=== PATIENT | female | born 1990 | race Caucasian/White ===

== ENCOUNTER 2020-11-11 19:45 | Emergency (ER) | payer OTHER, MEDICAID, SELFPAY ==
[2020-11-11 19:57] VITALS: BP 118/57; PULSE 73; RESP 18; TEMP 37.1; O2SAT 98; BMI 18.0
[2020-11-11 20:17] LABS: Add Manual Diff / Slide Review NO; Basophils Absolute Auto 100 /uL (0-100); Basophils Percent Auto 0.8 % (0-2); Eosinophils Absolute Auto 500 /uL (0-450); Eosinophils Percent Auto 4.5 % (2-4); Hematocrit 41.9 % (36-46); Lymphocytes Absolute Auto 2200 /uL (1100-4500); Lymphocytes Percent Auto 21.7 % (25-40); Mean Corpuscular HGB Conc 33.5 % (30-36); Mean Corpuscular Hemoglobin 28.7 PG (26-34); Mean Corpuscular Volume 85.8 fL (80-100); Monocytes Absolute Auto 1100 /uL (0-900); Monocytes Percent Auto 10.5 % (3-14); Neutrophils Absolute Auto 6300 /uL (1500-7000); Neutrophils Percent Auto 62.5 % (50-75); Platelet Count 227 X10^3/uL (150-400); Red Blood Cell Count 4.89 X10^6/uL (4.0-5.2); Red Cell Distribution Width 13.9 % (11.6-14.8); White Blood Cell Count 10.1 X10^3/uL (4.5-11.0)
[2020-11-11 20:25] LABS: Alanine Aminotransferase 21 IU/L (<35); Albumin 4.2 g/dL (3.5-5.0); Albumin Globulin Ratio 1.4 (1.0-2.8); Alkaline Phosphatase 64 U/L (38-126); Aspartate Aminotransferase 24 IU/L (14-36); BUN Creatinine Ratio 11.8 (6-22); Bilirubin Total 0.4 mg/dL (0.2-1.3); Blood Urea Nitrogen 9 mg/dL (7-17); Calcium 9.2 mg/dL (8.4-10.2); Carbon Dioxide 26 mmol/L (22-32); Chloride 107 mmol/L (98-107); Creatine Kinase 38 U/L (30-135); Estimated Glomerular Filt Rate > 60.0 mL/min (>60); Globulin 2.9 g/dL (1.7-4.1); Glucose 89 mg/dL (70-100); HEMOLYSIS < 15 (0-50); Lipase 103 U/L (23-300); Sodium 140 mmol/L (137-145); Total Protein 7.1 g/dL (6.3-8.2)
[2020-11-11 20:37] LABS: Troponin I < 0.012 ng/mL (0.01-0.034)
[2020-11-11 20:38] LABS: COVID19 -Nasal RAPID Negative (Negative)
== END 2020-11-11 22:49 | disposition left against medical advice (07) ==
PROVIDERS: Emergency Provider Emergency Medicine
DX: R05 Cough (principal); R07.9 Chest pain, unspecified; Z20.822 Contact with and (suspected) exposure to COVID-19
CPT/HCPCS: 36415; 80053; 82550; 83690; 84484; 85025; 87635; 99281; C9803

== ENCOUNTER → 2021-08-18 08:39 | Outpatient (CLI) | payer OTHER, MEDICAID, SELFPAY ==
--- NOTE | 2021-08-18 08:40 | DI.MG.S_ITS ---
BILATERAL DIGITAL DIAGNOSTIC MAMMOGRAM 3D/2D: 08/18/2021 CLINICAL: Diffuse left breast pain. Baseline. No prior exams were available for comparison. The tissue of both breasts is extremely dense, which lowers the sensitivity of mammography. No significant masses, calcifications, or other findings are seen in either breast. IMPRESSION: INCOMPLETE: NEEDS ADDITIONAL IMAGING EVALUATION There is no abnormality seen in the left breast to correspond with the area of clinical concern and pain in the lateral aspect, however, an ultrasound is recommended for further evaluation and is scheduled to immediately follow this examination. This exam was interpreted at Station ID: [id number]. NOTE: For mammograms, a report in lay terms will be sent to the patient. Approximately 15% of breast malignancies will not be visualized mammographically. In the management of a palpable breast mass, a negative mammogram must not discourage biopsy of a clinically suspicious lesion. Electronically Signed By: Agustin Harry M.D. aty/:08/18/2021 09:23:44 ACR BI-RADS Category 0: Incomplete [id number]
--- NOTE | 2021-08-18 08:40 | DI.US.S_ITS ---
ULTRASOUND OF LEFT BREAST AND AXILLA: 08/18/2021 CLINICAL: Focal left breast pain. Comparison is made to exam dated: 08/18/2021 mammogram - [facility]. Color flow and real-time ultrasound of the left breast axilla were performed. Cohn scale images of the real-time examination were reviewed. There is a 0.6 cm x 0.4 cm x 0.5 cm oval mass with a circumscribed margin in the left breast at 4 o'clock middle depth 2 cm from the nipple. This oval mass is hypoechoic. This was not seen on the prior mammogram. Color flow imaging demonstrates that there is no vascularity present. There also is a 0.5 cm x 0.3 cm x 0.5 cm normal lymph node in the left breast at 3 o'clock middle depth 3 cm from the nipple. This normal lymph node is hypoechoic. This correlates as an incidental finding. No significant abnormalities were seen sonographically in the left axilla. IMPRESSION: PROBABLY BENIGN The 0.6 cm x 0.4 cm x 0.5 cm oval mass in the left breast at 4 o'clock middle depth most likely is a fibroadenoma and is probably benign. The 0.5 cm x 0.3 cm x 0.5 cm normal lymph node in the left breast at 3 o'clock middle depth is benign. A follow-up left ultrasound in 6 months is recommended to demonstrate stability. Recommend clinical follow up for persistent or worsening symptoms, or development of any clinically suspicious findings. Findings and recommendations were conveyed to the patient during today's evaluation. This exam was interpreted at Station ID: [id number]. Electronically Signed By: Agustin silveira/:08/18/2021 11:16:32 letter sent: Clinical Evaluation Ultrasound BI-RADS: 3 Probably benign
== END ==
PROVIDERS: Referring Provider Obstetrics & Gynecology; Visit Provider Obstetrics & Gynecology
DX: R92.2 Inconclusive mammogram (principal); N63.23 Unspecified lump in the left breast, lower outer quadrant; N64.4 Mastodynia
CPT/HCPCS: 76642; 77066; G0279

== ENCOUNTER → 2022-02-03 09:46 | Outpatient (CLI) | payer OTHER, MEDICAID, SELFPAY ==
--- NOTE | 2022-02-03 09:47 | DI.US.S_ITS ---
PROCEDURE: US PELVIC COMPLETE INDICATIONS: RIGHT ovary pain TECHNIQUE: Real-time scanning was performed of the pelvic organs, with image documentation. Additional endovaginal scanning was necessary due to incomplete visualization of the adnexal and endometrial structures by transabdominal scanning. COMPARISON: None. FINDINGS: Uterus: Removed. Ovaries: The right ovary measures 3.9 x 2.1 x 2.0 cm, with a calculated ovarian volume of 8.3 cc. The left ovary is absent. There is a 1.1 cm follicle within the right ovary. Other: No pathologic free abdominal or pelvic fluid. IMPRESSION: Absence of uterus and left ovary. 1.1 cm right ovarian follicle. We strive to produce accurate, complete, and clear reports of imaging services. To assist us in improving patient care, this report was composed using standard report templates and voice recognition software. Therefore, it may contain abnormal punctuation, insertions and/or omissions. Occasional wrong-word or sound-alike substitutions may occur. Though we review the report and make efforts to correct it, we do recommend that the report be read carefully in proper context to recognize any text inaccuracies. Dictated by: Sue Nuñez M.D. on 02/03/2022 at 12:06 Approved by: Sue Nuñez M.D. on 02/03/2022 at 12:09
--- NOTE | 2022-02-03 09:47 | DI.US.S_ITS ---
LIMITED ULTRASOUND OF LEFT BREAST: 02/03/2022 CLINICAL: 6 month follow-up of cysts. Comparison is made to exams dated: 08/18/2021 ultrasound and 08/18/2021 mammogram - [facility]. Color flow and real-time ultrasound of the left breast 3-4 o'clock region were performed. Cohn scale images of the real-time examination were reviewed. There is a stable 0.5 cm x 0.4 cm x 0.3 cm oval mass with a circumscribed margin in the left breast at 4 o'clock middle depth 2 cm from the nipple. This oval mass is hypoechoic. This was not seen on the prior mammogram. Color flow imaging demonstrates that there is no vascularity present. There also is a stable benign 0.5 cm x 0.4 cm x 0.3 cm normal lymph node in the left breast at 3 o'clock middle depth 3 cm from the nipple. This normal lymph node is hypoechoic. This correlates as an incidental finding. IMPRESSION: PROBABLY BENIGN Stable 0.5 cm mass in the left breast at 4 o'clock middle depth most likely is a lymph node or a fibroadenoma and is probably benign. Stable 0.5 cm normal lymph node in the left breast at 3 o'clock middle depth is consistent with a lymph node and is benign. A follow-up ultrasound in 6 months is recommended to demonstrate continued stability. Exam findings were conveyed to the patient. This exam was interpreted at Station ID: [id number]. Electronically Signed By: Morteza Alfaro M.D. slc/:02/03/2022 10:56:28 letter sent: Followup Recommended Ultrasound BI-RADS: 3 Probably benign
== END ==
PROVIDERS: Referring Provider Specialist; Visit Provider Specialist
DX: N63.23 Unspecified lump in the left breast, lower outer quadrant (principal); N64.4 Mastodynia; N94.89 Other specified conditions associated with female genital organs and menstrual cycle; Z90.710 Acquired absence of both cervix and uterus; Z90.721 Acquired absence of ovaries, unilateral
CPT/HCPCS: 76642; 76830; 76856; 93976

== ENCOUNTER → 2022-05-08 10:12 | Outpatient (CLI) | payer OTHER, MEDICAID, SELFPAY ==
--- NOTE | 2022-05-08 10:12 | DI.US.S_ITS ---
PROCEDURE: US PELVIC COMPLETE INDICATIONS: HISTORY OF OVARIAN CYST TECHNIQUE: Real-time scanning was performed of the pelvic organs, with image documentation. Additional endovaginal scanning was necessary due to incomplete visualization of the adnexal and endometrial structures by transabdominal scanning. COMPARISON: [facility], , US PELVIC COMPLETE, 02/03/2022, 9:54. FINDINGS: Uterus: Status post hysterectomy. Ovaries: Status post left oophorectomy. The right ovary measures 3.7 x 1.9 x 1.7 cm, with a calculated ovarian volume of 6.3 cc. The right ovary has a normal sonographic appearance without a visualized cyst. No adnexal masses are seen. Other: No pathologic free abdominal or pelvic fluid. IMPRESSION: 1. Status post hysterectomy and left oophorectomy. 2. No right ovarian cyst. We strive to produce accurate, complete, and clear reports of imaging services. To assist us in improving patient care, this report was composed using standard report templates and voice recognition software. Therefore, it may contain abnormal punctuation, insertions and/or omissions. Occasional wrong-word or sound-alike substitutions may occur. Though we review the report and make efforts to correct it, we do recommend that the report be read carefully in proper context to recognize any text inaccuracies. Approved by: Bry Carreon M.D. on 05/08/2022 at 14:58
== END ==
PROVIDERS: Referring Provider Obstetrics & Gynecology; Visit Provider Obstetrics & Gynecology
DX: N83.00 Follicular cyst of ovary, unspecified side (principal); Z90.721 Acquired absence of ovaries, unilateral; Z90.710 Acquired absence of both cervix and uterus
CPT/HCPCS: 76830; 76856

== ENCOUNTER → 2022-11-30 09:50 | Outpatient (CLI) | payer OTHER, MEDICAID, SELFPAY ==
[2022-11-30 10:30] LABS: Add Manual Diff / Slide Review NO; Basophils Absolute Auto 0 /uL (0-100); Basophils Percent Auto 0.6 % (0-2); Eosinophils Absolute Auto 100 /uL (0-450); Eosinophils Percent Auto 1.5 % (2-4); Hematocrit 39.8 % (36-46); Hemoglobin 13.6 g/dL (12.0-16.0); Lymphocytes Absolute Auto 1500 /uL (1100-4500); Lymphocytes Percent Auto 24.2 % (25-40); Mean Corpuscular HGB Conc 34.3 % (30-36); Mean Corpuscular Hemoglobin 28.7 PG (26-34); Mean Corpuscular Volume 83.7 fL (80-100); Monocytes Absolute Auto 600 /uL (0-900); Monocytes Percent Auto 9.1 % (3-14); Neutrophils Absolute Auto 4100 /uL (1500-7000); Neutrophils Percent Auto 64.6 % (50-75); Platelet Count 217 X10^3/uL (150-400); Red Blood Cell Count 4.75 X10^6/uL (4.0-5.2); Red Cell Distribution Width 13.3 % (11.6-14.8); White Blood Cell Count 6.3 X10^3/uL (4.5-11.0)
[2022-11-30 10:36] LABS: Hemoglobin A1C% w Est Avg Glu 5.1 % (4.0-6.0)
[2022-11-30 10:51] LABS: Alanine Aminotransferase 18 IU/L (<35); Albumin 4.1 g/dL (3.5-5.0); Albumin Globulin Ratio 1.6 (1.0-2.8); Alkaline Phosphatase 66 U/L (38-126); Aspartate Aminotransferase 23 IU/L (14-36); BUN Creatinine Ratio 17.3 (6-22); Bilirubin Total 0.4 mg/dL (0.2-1.3); Blood Urea Nitrogen 14 mg/dL (7-17); Calcium 9.1 mg/dL (8.4-10.2); Carbon Dioxide 29 mmol/L (22-32); Chloride 103 mmol/L (98-107); Cholesterol 132 mg/dL (140-199); Estimated Glomerular Filt Rate > 60 mL/min (>60); Globulin 2.6 g/dL (1.7-4.1); Glucose 96 mg/dL (70-100); HDL Cholesterol 55 mg/dL (40-60); HEMOLYSIS < 15 (0-50); LDL Cholesterol Calculated 69 mg/dL (<100); Potassium 3.8 mmol/L (3.4-5.1); Sodium 138 mmol/L (137-145); Total Protein 6.7 g/dL (6.3-8.2); Triglycerides 39 mg/dL (35-150)
[2022-11-30 11:10] LABS: TSH w/ Reflex to FT4 0.79 uIU/mL (0.47-4.68)
== END ==
PROVIDERS: PCP Family Medicine; Referring Provider Family Medicine; Visit Provider Family Medicine
DX: D64.9 Anemia, unspecified (principal); I95.9 Hypotension, unspecified; R53.83 Other fatigue
CPT/HCPCS: 36415; 80053; 80061; 83036; 84443; 85025

== ENCOUNTER → 2022-12-11 12:49 | Outpatient (CLI) | payer OTHER, MEDICAID, SELFPAY ==
--- NOTE | 2022-12-11 12:51 | DI.US.S_ITS ---
LIMITED ULTRASOUND OF LEFT BREAST: 12/11/2022 CLINICAL: Patient returns today to evaluate two focal asymmetries in the left breast. Comparison is made to exams dated: 02/03/2022 ultrasound, 08/18/2021 ultrasound, and 08/18/2021 mammogram - [facility]. Color flow and real-time ultrasound of the left breast 3-4 o'clock region were performed. Cohn scale images of the real-time examination were reviewed. There is a stable benign 0.5 cm x 0.4 cm x 0.3 cm normal lymph node in the left breast at 3 o'clock middle depth 3 cm from the nipple. This normal lymph node is hypoechoic. This correlates as an incidental finding. The mass in the left breast at 4 o'clock middle depth is no longer seen. This was not seen on the prior mammogram. IMPRESSION: BENIGN There is no sonographic evidence of malignancy. Mass at the 4:00 position is no longer seen and is benign. Stable 0.5 cm lymph node in the left breast at 3 o'clock middle depth is benign. Exam findings were conveyed to the patient. Patient reports persistent pain in the lateral left breast. Patient is advised to monitor for significant change. Clinical follow-up as needed. A screening mammogram at age 40 is recommended. This exam was interpreted at Station ID: [id number]. Electronically Signed By: Morteza Alfaro M.D. [facility]/:12/11/2022 13:24:49 letter sent: Normal Exam Ultrasound BI-RADS: 2 Benign
== END ==
PROVIDERS: PCP Family Medicine; Referring Provider Family Medicine; Visit Provider Family Medicine
DX: N63.20 Unspecified lump in the left breast, unspecified quadrant (principal)
CPT/HCPCS: 76642

== ENCOUNTER → 2023-02-15 13:39 | Outpatient (CLI) | payer OTHER, MEDICAID, SELFPAY ==
--- NOTE | 2023-02-15 | DI.ECHO.S_ITS ---
[facility]---------+ [facility] +---------+ : : [address] : : : : [id number] : : : : Phone: [phone]+ Echocardiogram Report + + :Name: RADHA SCOTT Study Date: 02/15/2023 Height: 69 in : :[facility] ReadingLocation: Weight: 150 lb : : Gender: Female BSA: 1.8 m2 : :: 1990 Age: 32 yrs BP: 100/73 mmHg: :Reason For Study: DYSPNEA ON EXERTION : :Ordering Physician: QIAN, : :HORACIO Performed By: Yvonne Juarez : :Referring: HORACIO LAUGHLIN : + + Interpretation Summary Normal sinus rhythm. Normal LV size and wall thickness; normal wall motion and LV systolic function. EF is 55-60%. Normal chamber sizes. No significant valvular abnormalities. No prior study available for comparison. Procedure: A two-dimensional transthoracic echocardiogram with color flow and Doppler was performed. The study quality was technically adequate. There is no prior echocardiogram noted for this patient. The patient was in sinus rhythm with heart rates between 58-72 bpm during the exam. Left Ventricle: The left ventricle is normal in size and wall thickness. The ejection fraction is estimated to be 55-60%. Right Ventricle: The right ventricle is normal in size and function. Atria: The left atrial size is normal. Right atrial size is normal. There is no Doppler evidence for an interatrial shunt. Mitral Valve: The mitral valve is normal in structure and function. There is trace mitral regurgitation. Aortic Valve: The aortic valve is trileaflet. The aortic valve opens well. There is no aortic valve stenosis. No aortic regurgitation is present. Tricuspid Valve: The tricuspid valve is normal in structure and function. There is trace tricuspid regurgitation. Pulmonary artery pressures cannot be estimated because of the lack of a measurable TR jet velocity. Pulmonic Valve: The pulmonic valve leaflets are thin and pliable; valve motion is normal. There is no pulmonic valvular regurgitation. Great Vessels: The aortic root is normal size. The dimensions of the ascending aorta are normal. The IVC is of normal diameter and collapses greater than 50% with a sniff. This suggests a low right atrial pressure of 3 mm Hg. Pericardium/ Pleura There is no pericardial effusion. There is no pleural effusion. MMode/2D Measurements & Calculations LVIDd: 4.3 cm LVOT diam: 2.0 cm LVIDs: 2.9 cm Ao root diam: 2.8 cm FS: 32.9 % asc Aorta Diam: 2.6 cm IVSd: 0.50 cm Ao Arch Diam (Prox Trans): 2.7 cm LVPWd: 0.54 cm LV berry. diameter/BSA (cm/m^2): 2.3 LV sys. diameter/BSA (cm/m^2): 1.6 LA A2 area: 11.5 cm2 RA long axis: 3.7 cm LA A4 area: 11.0 cm2 RA area: 11.3 cm2 LA length (vol): 3.9 cm RA vol: 29.8 ml LA vol: 27.8 ml RA : 16.3 ml/m2 LA vol index: 15.2 ml/m2 IVC diam: 1.7 cm RVD1 (basal): 3.1 cm RVD2 (mid): 3.1 cm TAPSE: 1.8 cm Doppler Measurements & Calculations Ao V2 max: 119.7 cm/sec LVOT Max Ravi: 107.5 cm/sec Ao V2 mean: 82.5 cm/sec LV V1 max P.6 mmHg Ao max P.7 mmHg LV V1 VTI: 20.3 cm Ao mean P.0 mmHg BASSAM(I,D): 2.6 cm2 Ao V2 VTI: 23.9 cm BASSAM(V,D): 2.8 cm2 sev ratio: 0.85 BASSAM indexed to BSA (cm^2/m^2): 1.4 MV E max ravi: 83.6 cm/sec PA V2 max: 100.8 cm/sec MV A max ravi: 63.4 cm/sec PA V2 mean: 71.2 cm/sec MV E/A: 1.3 PA mean P.2 mmHg Med Peak E' Ravi: 11.5 cm/sec PA pr(Accel): 17.3 mmHg E/E' med: 7.3 Lat Peak E' Ravi: 12.8 cm/sec E/E' lat: 6.5 E/e' average: 6.9 MV dec time: 0.25 sec SVMATT): 62.6 ml Electronically signed by: Horacio Laughlin M.D. on Reading Physician:02/19/2023 04:06 AM
--- NOTE | 2023-02-16 03:29 | DI.NM.S_ITS ---
DATE OF SERVICE: 02/15/2023 PROCEDURE: Exercise treadmill stress test without imaging. ORDERING PROVIDER: Diane Vazquez MD INDICATIONS: The patient is a 32-year-old female with intermittent fatigue, dyspnea, bradycardia, and atypical chest discomfort. FINDINGS: 1. The patient was able to exercise for 8 minutes 20 seconds on a standard Chris protocol suggesting mildly impaired exercise capacity with an TO of +12%, achieving 8.3 METs. 2. She had a normal heart rate response to exercise, achieving a maximum heart rate of 165 BPM (89% of her predicted maximum). She had a fairly flat blood pressure response to exercise with a resting blood pressure of 115/75, increasing to 120/76. 3. She reported 1/6 atypical chest discomfort at 3 minutes of exercise but no further details were provided. 4. Her resting ECG shows sinus rhythm with an incomplete RBBB but normal ST segments. There are no significant ST-segment shifts with exercise and only occasional, isolated PVCs at peak exercise but otherwise no arrhythmias. IMPRESSION: 1. Normal exercise treadmill stress test for ischemia. 2. Mildly impaired exercise capacity with mild, atypical chest discomfort and a fairly flat blood pressure response to exercise. She had rare isolated PVCs at peak exercise but no other arrhythmias. Susie Rabago - ROCHELLE/ruth ann/bret doc#: [id number]/job#: [id number] dd: 02/15/2023 16:49:00 dt: 02/16/2023 03:17:00 DICTATING /COPIES TO: Wes Cabrera MD; Diane Vazquez MD COPIES MNE: SANTOS;
== END ==
PROVIDERS: PCP Family Medicine; Referring Provider Internal Medicine; Visit Provider Internal Medicine
DX: R06.09 Other forms of dyspnea (principal); R07.89 Other chest pain; R53.83 Other fatigue; R00.1 Bradycardia, unspecified
CPT/HCPCS: 93017; 93306

== ENCOUNTER → 2023-06-11 16:33 | Outpatient (CLI) | payer OTHER, MEDICAID, SELFPAY ==
--- NOTE | 2023-06-11 16:34 | DI.RAD.S_ITS ---
PROCEDURE: XR THORACIC SPINE 2V INDICATIONS: t spine pain, scoliosis TECHNIQUE: 3 views of the thoracic spine were acquired. COMPARISON: None. FINDINGS: Bones: No fractures or dislocations. No suspicious bony lesions. 12 pairs of ribs are noted, and appear intact where visualized. Soft tissues: No paravertebral stripe thickening. IMPRESSION: No acute bony abnormality. Dictated by: Agustin Harry M.D. on 06/12/2023 at 9:53 Approved by: Agustin Harry M.D. on 06/12/2023 at 9:53
== END ==
PROVIDERS: PCP Family Medicine; Referring Provider Family Medicine; Visit Provider Family Medicine
DX: M54.6 Pain in thoracic spine (principal); J34.89 Other specified disorders of nose and nasal sinuses
CPT/HCPCS: 72070

== ENCOUNTER → 2023-12-07 12:16 | Outpatient (CLI) | payer OTHER, MEDICAID, SELFPAY ==
[2023-12-07 13:12] LABS: Alanine Aminotransferase 15 IU/L (<35); Albumin 4.6 g/dL (3.5-5.0); Albumin Globulin Ratio 1.6 (1.0-2.8); Alkaline Phosphatase 50 U/L (38-126); Aspartate Aminotransferase 23 IU/L (14-36); Bilirubin Total 0.6 mg/dL (0.2-1.3); Blood Urea Nitrogen 16 mg/dL (7-17); Calcium 9.3 mg/dL (8.4-10.2); Carbon Dioxide 27 mmol/L (22-32); Chloride 103 mmol/L (98-107); Cholesterol 145 mg/dL (140-199); Estimated Glomerular Filt Rate > 60 mL/min (>60); Globulin 2.8 g/dL (1.7-4.1); Glucose 84 mg/dL (70-100); HDL Cholesterol 54 mg/dL (40-60); HEMOLYSIS < 15 (0-50); LDL Cholesterol Calculated 76 mg/dL (<100); Potassium 4.6 mmol/L (3.4-5.1); Sodium 139 mmol/L (137-145); Total Protein 7.4 g/dL (6.3-8.2); Triglycerides 75 mg/dL (35-150)
[2023-12-08 20:04] LABS: HIV 1 & 2 Ab/Ag 4th Gen Combo NEGATIVE (NEGATIVE); Hep C Virus Ab w/Reflex Quant NEGATIVE s/c (NEGATIVE)
== END ==
PROVIDERS: PCP Family Medicine; Referring Provider Family Medicine; Visit Provider Family Medicine
DX: E78.5 Hyperlipidemia, unspecified (principal); G56.00 Carpal tunnel syndrome, unspecified upper limb
CPT/HCPCS: 36415; 80053; 80061; 86803; 87389

== ENCOUNTER 2024-03-20 13:00 | Outpatient (RCR) | payer OTHER, MEDICAID, SELFPAY ==
--- NOTE | 2024-02-07 15:52 | OT.OP.EVAL ---
Visit Care Team Role Provider Type Zach Corona DO Family Provider Physician Primary Care Provider Specialty: Family Practice Address: [address] [place] [address], [address], [place], [address] Email: [email or web address] Chris Baca DO Attending Provider Non-Staff Referring Provider Specialty: Orthopedic Surgery Address: [facility], [place], [address] Email: Occupational Therapy Initial Evaluation OT Outpatient Adult Evaluation Start: 02/07/24 13:30 Freq: Status: Active Protocol: Document 02/07/24 13:30 AMS (Rec: 02/07/24 13:46 AMS [id number]) General Information - Adult Visit Number EVAL CHARGE ONLY; 0/8 (8 visits @ 3 units per visit) Plan of Care Dates 02/07/24 - 03/20/24 Insurance Information [employer]; Zach Corona MD and Chris Baca MD Visit Start Time 11:30 Visit Stop Time 12:05 Treatment Setting Outpatient Care Note Type Initial Evaluation Identification Confirmed Yes Identification Confirmed By Self OT Pain Assessment When Pain Assessed Pre-eval Pain Present Pain Reported Right Finger Scale Used 2nd dorsal digit; distal MP/ prox PIP; 4/10 Numeric Pain Scale Right Wrist Scale Used Volar/dorsal surfaces of wrist 7/10 Numeric Pain Scale Right Arm Scale Used R forearm; 7-8/10 Numeric Pain Scale Right Elbow Scale Used 7-8/10 Numeric Pain Scale Goals Field Instructor Goals 1. Susie will be modified independent with execution of home exercise program referencing visual/written instructions if needed. 2. Susie will verbalize understanding of joint protection principles; she will deny any questions re: basic joint protection principles. 3. Susie will present with improved ability to participate in meaningful activities; this will be evidenced by the followina. Susie will obtain a QuickDASH UE Outcome Measure Score of < 40.00. 3b. Susie will obtain a QuickDASH UE Work Module Score of < 50.00. 4. Susie will present w/ improved R UE strength which will support active incorporation of the R UE in daily life: 4a. 5/5 R wrist flex. 4b. 5/5 R wrist ext. 4c. 5/[address] 4d. 5/5 R wrist UD. 4e. 5/5 R elbow extension. Assessment/Plan Treatment Assessment Susie is 33 y.o.; she is R hand dominant; she was referred to OT secondary to R hand pain, R elbow pain, R hand paresthesia, R elbow medial epicondylitis. Medical history is significant for depression, hysterectomy, appendectomy, gall bladder removal, and tubal ligation. She is a mother of 4 children; her 8 y.o. still needs hands- on caregiving. 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 Susie reported that symptoms presented approx 1 year ago. Most discomfort of the medial R elbow; pain shoots distally down forearm into the wrist and thumb and 2nd digit of the R hand. She denied having a nerve conduction study; she reported trying a compression glove, compression sleeve, and a counterforce brace w/ reported no relief of symptoms . QuickDASH UE Outcome Measure Score = 59.09; QuickDASH Work Module Score (mobile home lot utility worker) = 62.50. Hobbies include painting, writing, crotcheting , and drawing, as well as reading. She has been limited in her ability to engage in these activities d/t pain/ discomfort. Active range of motion goniometer measurements : 0-62 R wrist flex vs 0-60 L wrist flex. 0-80 R wrist ext vs 0-90 L wrist ext. 0-30 R wrist UD vs 0-30 L wrist UD. 0 -[address] vs 0-[address] Full active bilateral elbow flex and ext; full active bilateral forearm pronation and supination. Pain /discomfort of medial R elbow w/ R forearm supination. (-) intrinsic tightness noted bilaterally. Dynamometer II Strength Testing Results with elbow in 90 degrees Flexion = R sports broadcaster 43 .0# of force (compared to 35- 39 y.o. same-aged peers 74.1 + /- 10.8# of force) versus L sports broadcaster 70.0# of force (compared to 35-39 y.o. same-aged peers 66.3 +/- 11.7# of force). Dynamometer II Strength Testing Results with Elbow Extended = R sports broadcaster 28.0# of force versus L sports broadcaster 75.0# of force. Lateral Salomon Pinch = R lateral pinch 9.5# of force ( compared to 35-39 y.o. same- aged peers 16.6 +/- 2.0# of force) versus L lateral pinch 15.0# of force (compared to 35 -39 y.o. same-aged peers 16.0 +/- 2.7# of force). Tip Pinch = R tip pinch 7.0# of force ( compared to 35-39 y.o. same- aged peers 11.6 +/- 2.5# of force) versus L tip pinch 11.0 # of force (compared to 35-39 y.o. same-aged peers 11.9 +/- 2.4# of force). 3-Jaw Pinch = R 3-jaw pinch 8.0# of force ( compared to 35-39 y.o. same- aged peers 17.5 +/- 4.2# of force) versus L 3-jaw pinch 11 .5# of force (compared to 35- 39 y.o. same-aged peers 17.1 + /- 3.4# of force). Right wrist soreness post- sports broadcaster/finger pinch strength testing. (-) change in sensation w/ elbow flexion test. Discomfort of medial elbow reported w/ resisted wrist flex and wrist ext. Distal UE Strength Testing Results: 4+/5 R wrist flex vs 5/5 L wrist flex. 4/5 R wrist ext vs 5/5 L wrist ext. 4/[address] vs 5/[address] 4+/5 R wrist UD vs 5 /5 L wrist UD. 5/5 R forearm supination vs 5/5 L forearm supination. 5/5 R forearm pronation vs 5/5 L forearm pronation. 4+/5 R elbow ext vs 5/5 L elbow ext. 5/5 R elbow flex vs 5/5 L elbow flex. Outpatient OT recommended to establish HEP, address stiffness and reduced strength , and provide education re: joint protection/ergonomics. Length of treatment (weeks) 6 Plan of Care Start Date 02/07/24 Plan of Care End Date 03/20/24 Comment 1-2 times per week Therapeutic Contents Active Range of Motion, Adaptive Equipment Education, Functional Activities,Home Exercise Program,Joint Protection,Manual Therapy, Education,Neurodevelopment Treatment,Neuromuscular Re- Education,Self-Care,Stretching /Flexibility Activities, Therapeutic Activities, Therapeutic Exercises, Modalities Modalities As Needed,As Prescribed Additional Types of Modalities Heat/Ice/Contrast Baths/ Paraffin Bath/Ultrasound/ Kinesiotape
--- NOTE | 2024-03-06 15:55 | OT.OP.TRT ---
Visit Care Team Role Provider Type Zach Corona DO Family Provider Physician Primary Care Provider Specialty: Family Practice Address: [address] [place] [address], [address], [place], [address] Email: [email or web address] Chris Baca DO Attending Provider Non-Staff Referring Provider Specialty: Orthopedic Surgery Address: [facility] [place], [address] Email: Occupational Therapy Treatment Note OT Outpatient Treatment Note - Adult Start: 02/07/24 13:30 Freq: Status: Active Protocol: Document 03/06/24 15:42 AMS (Rec: 03/06/24 15:55 AMS [id number]) OT Outpatient Adult Treatment Note Session Time Visit Start Time 13:05 Visit Stop Time 13:45 Visit Information Visit Number 1/ (8 visits @ 3 units per visit) Plan of Care Dates 02/07/24 - 03/20/24 Insurance Information [employer]; Zach Corona MD and Chris Baca MD Setting Treatment Setting Outpatient Care Visit Type Note Type Treatment Note General Information General Information Susie is 33 y.o.; she is R hand dominant; she was referred to OT secondary to R hand pain, R elbow pain, R hand paresthesia, R elbow medial epicondylitis. Medical history is significant for depression, hysterectomy, appendectomy, gall bladder removal, and tubal ligation. She is a mother of 4 children; her 6 y.o. still needs hands- on caregiving. 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 Susie reported that symptoms presented approx 1 year ago. Most discomfort of the medial R elbow; pain shoots distally down forearm into the wrist and thumb and 2nd digit of the R hand. She denied having a nerve conduction study; she reported trying a compression glove, compression sleeve, and a counterforce brace w/ reported no relief of symptoms . - Subjective Identification Type Name Observations Susie denied any change in symptoms. - Objective Objective Measurements Please refer to below for progress towards meeting established OT goals: Route Inspector Goals 1. Susie will be modified independent with execution of home exercise program referencing visual/written instructions if needed. 2. Susie will verbalize understanding of joint protection principles; she will deny any questions re: basic joint protection principles. 3. Susie will present with improved ability to participate in meaningful activities; this will be evidenced by the followina. Susie will obtain a QuickDASH UE Outcome Measure Score of < 40.00. 3b. Susie will obtain a QuickDASH UE Work Module Score of < 50.00. 4. Susie will present w/ improved R UE strength which will support active incorporation of the R UE in daily life: 4a. 5/5 R wrist flex. 4b. 5/5 R wrist ext. 4c. 5/[address] 4d. 5/5 R wrist UD. 4e. 5/5 R elbow extension. - Exercises 3 Descriptor Resistant exercises. Green Flex-bar; level 3. Supination. 3 x 10. Green Flex-bar; level 3. Pronation. 3 x 10. Green Flex-bar; level 3. RD. 3 x 10. Green Flex-bar; level 3. UD. 3 x 10. 2 Descriptor UEB x 15 minutes. Seated. Forwards direction. No rest breaks. Height #4. 1 Descriptor Distal UE ROM. Passive wrist/digit ext w/ elbow ext and forearm supination. Hold for 20 sec. Completed bilaterally. x 1. Passive wrist flex w/ elbow ext and forearm pronation. Hold for 20 sec. Completed bilaterally. x 1. Passive wrist RD/UD w/ slight elbow ext and forearm pronation. Use of TT. Hold for 20 sec. Completed bilaterally . x 1. Tendon glides. x 5 cycles. Hold for 2-3 sec. - Assessment Assessment of Improvement Advanced therapeutic exercises ; advanced HEP. There has been no changes in her pain/ discomfort. She has transitioned from hand sewing to sewing machine use w/ quilting. She has a history of crocheting. She has 2 children on the spectrum; 4 children in total. Did not tolerate tennis elbow flex-bar eccentric exercise; consider providing w/ flex-bar w/ less resistance for this exercise at next treatment session. Home Exercise Program 03/06/24 = Passive wrist/digit ext w/ elbow ext and forearm supination. Hold for 20-30 sec . Complete bilaterally. Execute 1-2 times daily or as needed. Passive wrist flex w/ elbow ext and forearm pronation. Hold for 20-30 sec. Complete bilaterally. Execute 1-2 times daily or as needed. Passive wrist RD/UD w/ slight elbow ext and forearm pronation. Use of TT. Hold for 20-30 sec. Complete bilaterally. Execute 1-2 times daily or as needed. Instructed in alternative wall wrist/digit ext stretch at wall w/ forearm supination vs passive stretch previously listed; instructed to move hands superiorly on wall until stretch is felt. Hold for 20- 30 sec. Complete bilaterally. An alternative to the passive ipsilateral stretch previously instructed in. Tendon glides. x 5 cycles. Hold for 2-3 sec each position. Complete bilaterally. Make sure to return to neutral between glides. - Plan Therapy Recommendations Advance per Rehabilitation Protocol
--- NOTE | 2024-03-20 15:32 | OT.OPPOC ---
Physical, Occupational & Speech Therapy At [facility] Susie Rabago [id number] 1990 Visit Care Team Role Provider Type Zach Corona DO Family Provider Physician Primary Care Provider Address: [address] [place] [address], [facility] [address], [place], [address] Chris Baca DO Attending Provider Non-Staff Referring Provider Address: [address] [place], [address] Occupational Therapy Plan of Care OT Outpatient Adult Evaluation Start: 02/07/24 13:30 Freq: Status: Active Protocol: Document 02/07/24 13:30 AMS (Rec: 02/07/24 13:46 AMS [id number]) General Information - Adult Visit Information Visit Number EVAL CHARGE ONLY; 0/8 (8 visits @ 3 units per visit) Plan of Care Dates 02/07/24 - 03/20/24 Insurance Information [employer]; Zach Corona MD and Chris Baca MD Session Time Visit Start Time 11:30 Visit Stop Time 12:05 Setting Treatment Setting Outpatient Care Visit Type Note Type Initial Evaluation Identification Identification Confirmed Yes Identification Confirmed By Self OT Pain Assessment Pain When Pain Assessed Pre-eval Pain Present Pain Present Pain Reported Location Right Finger Scale Used 2nd dorsal digit; distal MP/ prox PIP; 4/10 Numeric Pain Scale Right Wrist Scale Used Volar/dorsal surfaces of wrist 7/10 Numeric Pain Scale Right Arm Scale Used R forearm; 7-8/10 Numeric Pain Scale Right Elbow Scale Used 7-8/10 Numeric Pain Scale Goals Correction Goals Correction Goals 1. Susie will be modified independent with execution of home exercise program referencing visual/written instructions if needed. 2. Susie will verbalize understanding of joint protection principles; she will deny any questions re: basic joint protection principles. 3. Susie will present with improved ability to participate in meaningful activities; this will be evidenced by the followina. Susie will obtain a QuickDASH UE Outcome Measure Score of < 40.00. 3b. Susie will obtain a QuickDASH UE Work Module Score of < 50.00. 4. Susie will present w/ improved R UE strength which will support active incorporation of the R UE in daily life: 4a. 5/5 R wrist flex. 4b. 5/5 R wrist ext. 4c. 5/[address] 4d. 5/5 R wrist UD. 4e. 5/5 R elbow extension. Assessment/Plan Assessment Treatment Assessment Susie is 33 y.o.; she is R hand dominant; she was referred to OT secondary to R hand pain, R elbow pain, R hand paresthesia, R elbow medial epicondylitis. Medical history is significant for depression, hysterectomy, appendectomy, gall bladder removal, and tubal ligation. She is a mother of 4 children; her 6 y.o. still needs hands- on caregiving. 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 Susie reported that symptoms presented approx 1 year ago. Most discomfort of the medial R elbow; pain shoots distally down forearm into the wrist and thumb and 2nd digit of the R hand. She denied having a nerve conduction study; she reported trying a compression glove, compression sleeve, and a counterforce brace w/ reported no relief of symptoms . QuickDASH UE Outcome Measure Score = 59.09; QuickDASH Work Module Score (home lighting adviser) = 62.50. Hobbies include painting, writing, crotcheting , and drawing, as well as reading. She has been limited in her ability to engage in these activities d/t pain/ discomfort. Active range of motion goniometer measurements : 0-62 R wrist flex vs 0-60 L wrist flex. 0-80 R wrist ext vs 0-90 L wrist ext. 0-30 R wrist UD vs 0-30 L wrist UD. 0 -[address] vs 0-[address] Full active bilateral elbow flex and ext; full active bilateral forearm pronation and supination. Pain /discomfort of medial R elbow w/ R forearm supination. (-) intrinsic tightness noted bilaterally. Dynamometer II Strength Testing Results with elbow in 90 degrees Flexion = R lead burner apprentice 43 .0# of force (compared to 35- 39 y.o. same-aged peers 74.1 + /- 10.8# of force) versus L lead burner apprentice 70.0# of force (compared to 35-39 y.o. same-aged peers 66.3 +/- 11.7# of force). Dynamometer II Strength Testing Results with Elbow Extended = R lead burner apprentice 28.0# of force versus L lead burner apprentice 75.0# of force. Lateral Salomon Pinch = R lateral pinch 9.5# of force ( compared to 35-39 y.o. same- aged peers 16.6 +/- 2.0# of force) versus L lateral pinch 15.0# of force (compared to 35 -39 y.o. same-aged peers 16.0 +/- 2.7# of force). Tip Pinch = R tip pinch 7.0# of force ( compared to 35-39 y.o. same- aged peers 11.6 +/- 2.5# of force) versus L tip pinch 11.0 # of force (compared to 35-39 y.o. same-aged peers 11.9 +/- 2.4# of force). 3-Jaw Pinch = R 3-jaw pinch 8.0# of force ( compared to 35-39 y.o. same- aged peers 17.5 +/- 4.2# of force) versus L 3-jaw pinch 11 .5# of force (compared to 35- 39 y.o. same-aged peers 17.1 + /- 3.4# of force). Right wrist soreness post- lead burner apprentice/finger pinch strength testing. (-) change in sensation w/ elbow flexion test. Discomfort of medial elbow reported w/ resisted wrist flex and wrist ext. Distal UE Strength Testing Results: 4+/5 R wrist flex vs 5/5 L wrist flex. 4/5 R wrist ext vs 5/5 L wrist ext. 4/[address] vs 5/[address] 4+/5 R wrist UD vs 5 /5 L wrist UD. 5/5 R forearm supination vs 5/5 L forearm supination. 5/5 R forearm pronation vs 5/5 L forearm pronation. 4+/5 R elbow ext vs 5/5 L elbow ext. 5/5 R elbow flex vs 5/5 L elbow flex. Outpatient OT recommended to establish HEP, address stiffness and reduced strength , and provide education re: joint protection/ergonomics. Plan Length of treatment (weeks) 6 Plan of Care Start Date 02/07/24 Plan of Care End Date 03/20/24 Comment 1-2 times per week Therapeutic Contents Active Range of Motion, Adaptive Equipment Education, Functional Activities,Home Exercise Program,Joint Protection,Manual Therapy, Education,Neurodevelopment Treatment,Neuromuscular Re- Education,Self-Care,Stretching /Flexibility Activities, Therapeutic Activities, Therapeutic Exercises, Modalities Modalities As Needed,As Prescribed Additional Types of Modalities Heat/Ice/Contrast Baths/ Paraffin Bath/Ultrasound/ Kinesiotape Functional Wrist/Hand Scan Hand Side Sensory Assessment Sensory Profile2 OT Outpatient Treatment Note - Adult Start: 02/07/24 13:30 Freq: Status: Active Protocol: Document 03/20/24 15:18 AMS (Rec: 03/20/24 15:31 AMS [id number]) OT Outpatient Adult Treatment Note Session Time Visit Start Time 13:05 Visit Stop Time 13:45 Visit Information Visit Number 2/ (8 visits @ 3 units per visit) Plan of Care Dates 03/20/24 - 04/17/24 Insurance Information [employer]; Zach Corona MD and Chris Baca MD Setting Treatment Setting Outpatient Care Visit Type Note Type Progress Note General Information General Information Susie is 33 y.o.; she is R hand dominant; she was referred to OT secondary to R hand pain, R elbow pain, R hand paresthesia, R elbow medial epicondylitis. Medical history is significant for depression, hysterectomy, appendectomy, gall bladder removal, and tubal ligation. Report of difficulties w/ sleep/insomnia. She is a mother of 4 children; her 6 y. o. still needs hands-on caregiving. 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 Susie reported that symptoms presented approx 1 year ago. Most discomfort of the medial R elbow; pain shoots distally down forearm into the wrist and thumb and 2nd digit of the R hand. She denied having a nerve conduction study; she reported trying a compression glove, compression sleeve, and a counterforce brace w/ reported no relief of symptoms . Hobbies: She has transitioned from hand sewing to sewing machine use w/ quilting. She has a history of crocheting. - Subjective Identification Type Name Observations Susie reported that she cancelled next week's appointment d/t conflicting appointment in [place]. Susie denied any changes in her R UE symptoms. She has been doing stretches in the morning given that she awakes to stiffness. - Objective Objective Measurements Please refer to below for progress towards meeting established OT goals: Correction Goals 1. Susie will be modified independent with execution of home exercise program referencing visual/written instructions if needed. 2. Susie will verbalize understanding of joint protection principles; she will deny any questions re: basic joint protection principles. 3. Susie will present with improved ability to participate in meaningful activities; this will be evidenced by the followina. Susie will obtain a QuickDASH UE Outcome Measure Score of < 40.00. 3b. Susie will obtain a QuickDASH UE Work Module Score of < 50.00. 4. Susie will present w/ improved R UE strength which will support active incorporation of the R UE in daily life: 4a. 5/5 R wrist flex. 4b. 5/5 R wrist ext. 4c. 5/[address] 4d. 5/5 R wrist UD. 4e. 5/5 R elbow extension. - Exercises 4 Descriptor Wrist strengthening. TB #3. Wrist extension. Elbow 90 degrees flexion. Seated. 2 x 10. TB #3. Wrist flexion. Elbow 90 degrees flexion. Seated. 2 x 10. TB #3. Wrist RD. Elbow approx 100 degrees flexion. Seated. TT. 2 x 10. TB #3. Wrist UD. Elbow approx 100 degrees flexion. Seated. TT. 2 x 10. 3 Descriptor Resistant exercises. Green Flex-bar; level 3. Supination. 2 x 10. Green Flex-bar; level 3. Pronation. 2 x 10. Green Flex-bar; level 3. RD. 2 x 10. Green Flex-bar; level 3. UD. 2 x 10. Green Flex-bar; level 3. Wrist flexion. 2 x 10. Green Flex-bar; level 3. Wrist extension. 2 x 10. 2 Descriptor UEB x 15 minutes. Seated. Forwards direction. No rest breaks. Height #4. 1 Descriptor Distal UE ROM. Passive wrist/digit ext w/ elbow ext and forearm supination. Hold for 20 sec. Completed bilaterally. x 1. Passive wrist flex w/ elbow ext and forearm pronation. Hold for 20 sec. Completed bilaterally. x 1. Passive wrist RD/UD w/ slight elbow ext and forearm pronation. Use of TT. Hold for 20 sec. Completed bilaterally . x 1. Tendon glides. x 5 cycles. Hold for 2-3 sec. - Assessment Assessment of Improvement Advanced therapeutic exercises ; advanced HEP. There have been no changes in her pain/ discomfort since starting outpatient treatment; she reports completing her stretches in the morning d/t waking up w/ stiffness. Demonstrates and verbalizes awareness of need to return to neutral position between tendon glides. She has 2 children on the spectrum; 4 children in total. Home Exercise Program 03/20/24 = Resistive wrist strengthening exercises w/ use of TB#3; provided w/ TB#3 for home use. Instructed in seated resisted wrist ext, wrist flex, and use of TT for wrist RD/UD. Rec 2-3 sets of 10 repetitions (2 sets completed in today's session), 3 x a week, or every other day. Rec rest break approx ~1 min between sets and/or alt exercises (e.g., alt between resisted wrist ext <-> flex or wrist RD <-> UD). 03/06/24 = Passive wrist/digit ext w/ elbow ext and forearm supination. Hold for 20-30 sec . Complete bilaterally. Execute 1-2 times daily or as needed. Passive wrist flex w/ elbow ext and forearm pronation. Hold for 20-30 sec. Complete bilaterally. Execute 1-2 times daily or as needed. Passive wrist RD/UD w/ slight elbow ext and forearm pronation. Use of TT. Hold for 20-30 sec. Complete bilaterally. Execute 1-2 times daily or as needed. Instructed in alternative wall wrist/digit ext stretch at wall w/ forearm supination vs passive stretch previously listed; instructed to move hands superiorly on wall until stretch is felt. Hold for 20- 30 sec. Complete bilaterally. An alternative to the passive ipsilateral stretch previously instructed in. Tendon glides. x 5 cycles. Hold for 2-3 sec each position. Complete bilaterally. Make sure to return to neutral between glides. - Plan Therapy Recommendations Advance per Rehabilitation Protocol Comment 4 weeks Frequency of Treatment Once a Week Therapeutic Contents Active Range of Motion, Adaptive Equipment Education, Functional Activities,Home Exercise Program,Joint Protection,Manual Therapy, Education,Neurodevelopment Treatment,Neuromuscular Re- Education,Self-Care,Stretching /Flexibility Activities, Therapeutic Activities, Therapeutic Exercises Additional Types of Modalities Heat/Ice/Contrast Baths/ Paraffin/Ultrasound Electronically Signed by: Mary Alice Peck OT 03/20/24 1532 If you are in agreement with this Plan of Care, please return a signed and dated copy. I have reviewed this Plan of Care and certify that the skilled therapy services above are required to meet the patient?s needs. Physician Signature Date Printed Name and Credentials Clinical Instructor Signature Printed Name and Credentials
--- NOTE | 2024-04-03 13:22 | OT.OP.TRT ---
Visit Care Team Role Provider Type Zach Corona DO Family Provider Physician Primary Care Provider Specialty: Family Practice Address: [address] [place] [address], [address], [place], [address] Email: [email or web address] Chris Baca DO Attending Provider Non-Staff Referring Provider Specialty: Orthopedic Surgery Address: [address] [facility], [place], [address] Email: Occupational Therapy Treatment Note OT Outpatient Treatment Note - Adult Start: 02/07/24 13:30 Freq: Status: Active Protocol: Document 04/03/24 13:20 AMS (Rec: 04/03/24 13:22 AMS [id number]) OT Outpatient Adult Treatment Note Visit Type Note Type Administrative Note General Information General Information Susie is 33 y.o.; she is R hand dominant; she was referred to OT secondary to R hand pain, R elbow pain, R hand paresthesia, R elbow medial epicondylitis. Medical history is significant for depression, hysterectomy, appendectomy, gall bladder removal, and tubal ligation. Report of difficulties w/ sleep/insomnia. She is a mother of 4 children; her 6 y. o. still needs hands-on caregiving. 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 Susie reported that symptoms presented approx 1 year ago. Most discomfort of the medial R elbow; pain shoots distally down forearm into the wrist and thumb and 2nd digit of the R hand. She denied having a nerve conduction study; she reported trying a compression glove, compression sleeve, and a counterforce brace w/ reported no relief of symptoms . Hobbies: She has transitioned from hand sewing to sewing machine use w/ quilting. She has a history of crocheting. - Subjective Observations Given that Susie did not show for her scheduled 1:00 p. m. appointment, she was messaged via [employer]. She was notified of the time and date of her next scheduled appointment; phone number for the outpatient clinic was also included in the message. Clinician to follow-up as needed. - - - -
--- NOTE | 2024-04-21 10:49 | OT.OP.DC ---
Visit Care Team Role Provider Type Zach Corona DO Family Provider Physician Primary Care Provider Address: [address] [place] [address], [address], [place], [address] Email: [email or web address] Chris Baca DO Attending Provider Non-Staff Referring Provider Address: [facility] [place], [address] Email: OT Outpatient OT Outpatient Adult Evaluation Start: 02/07/24 13:30 Freq: Status: Active Protocol: Document 02/07/24 13:30 AMS (Rec: 02/07/24 13:46 AMS [id number]) General Information - Adult Visit Information Visit Number EVAL CHARGE ONLY; 0/8 (8 visits @ 3 units per visit) Plan of Care Dates 02/07/24 - 03/20/24 Insurance Information [employer]; Zach Corona MD and Chris Baca MD Session Time Visit Start Time 11:30 Visit Stop Time 12:05 Setting Treatment Setting Outpatient Care Visit Type Note Type Initial Evaluation Identification Identification Confirmed Yes Identification Confirmed By Self OT Pain Assessment Pain When Pain Assessed Pre-eval Pain Present Pain Present Pain Reported Location Right Finger Scale Used 2nd dorsal digit; distal MP/ prox PIP; 4/10 Numeric Pain Scale Right Wrist Scale Used Volar/dorsal surfaces of wrist 7/10 Numeric Pain Scale Right Arm Scale Used R forearm; 7-8/10 Numeric Pain Scale Right Elbow Scale Used 7-8/10 Numeric Pain Scale Goals Detention Goals Detention Goals 1. Susie will be modified independent with execution of home exercise program referencing visual/written instructions if needed. 2. Susie will verbalize understanding of joint protection principles; she will deny any questions re: basic joint protection principles. 3. Susie will present with improved ability to participate in meaningful activities; this will be evidenced by the followina. Susie will obtain a QuickDASH UE Outcome Measure Score of < 40.00. 3b. Susie will obtain a QuickDASH UE Work Module Score of < 50.00. 4. Susie will present w/ improved R UE strength which will support active incorporation of the R UE in daily life: 4a. 5/5 R wrist flex. 4b. 5/5 R wrist ext. 4c. 5/[address] 4d. 5/5 R wrist UD. 4e. 5/5 R elbow extension. Assessment/Plan Assessment Treatment Assessment Susie is 33 y.o.; she is R hand dominant; she was referred to OT secondary to R hand pain, R elbow pain, R hand paresthesia, R elbow medial epicondylitis. Medical history is significant for depression, hysterectomy, appendectomy, gall bladder removal, and tubal ligation. She is a mother of 4 children; her 8 y.o. still needs hands- on caregiving. 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 Susie reported that symptoms presented approx 1 year ago. Most discomfort of the medial R elbow; pain shoots distally down forearm into the wrist and thumb and 2nd digit of the R hand. She denied having a nerve conduction study; she reported trying a compression glove, compression sleeve, and a counterforce brace w/ reported no relief of symptoms . QuickDASH UE Outcome Measure Score = 59.09; QuickDASH Work Module Score (home economics teacher) = 62.50. Hobbies include painting, writing, crotcheting , and drawing, as well as reading. She has been limited in her ability to engage in these activities d/t pain/ discomfort. Active range of motion goniometer measurements : 0-62 R wrist flex vs 0-60 L wrist flex. 0-80 R wrist ext vs 0-90 L wrist ext. 0-30 R wrist UD vs 0-30 L wrist UD. 0 -[address] vs 0-[address] Full active bilateral elbow flex and ext; full active bilateral forearm pronation and supination. Pain /discomfort of medial R elbow w/ R forearm supination. (-) intrinsic tightness noted bilaterally. Dynamometer II Strength Testing Results with elbow in 90 degrees Flexion = R steam meter reader 43 .0# of force (compared to 35- 39 y.o. same-aged peers 74.1 + /- 10.8# of force) versus L steam meter reader 70.0# of force (compared to 35-39 y.o. same-aged peers 66.3 +/- 11.7# of force). Dynamometer II Strength Testing Results with Elbow Extended = R steam meter reader 28.0# of force versus L steam meter reader 75.0# of force. Lateral Salomon Pinch = R lateral pinch 9.5# of force ( compared to 35-39 y.o. same- aged peers 16.6 +/- 2.0# of force) versus L lateral pinch 15.0# of force (compared to 35 -39 y.o. same-aged peers 16.0 +/- 2.7# of force). Tip Pinch = R tip pinch 7.0# of force ( compared to 35-39 y.o. same- aged peers 11.6 +/- 2.5# of force) versus L tip pinch 11.0 # of force (compared to 35-39 y.o. same-aged peers 11.9 +/- 2.4# of force). 3-Jaw Pinch = R 3-jaw pinch 8.0# of force ( compared to 35-39 y.o. same- aged peers 17.5 +/- 4.2# of force) versus L 3-jaw pinch 11 .5# of force (compared to 35- 39 y.o. same-aged peers 17.1 + /- 3.4# of force). Right wrist soreness post- steam meter reader/finger pinch strength testing. (-) change in sensation w/ elbow flexion test. Discomfort of medial elbow reported w/ resisted wrist flex and wrist ext. Distal UE Strength Testing Results: 4+/5 R wrist flex vs 5/5 L wrist flex. 4/5 R wrist ext vs 5/5 L wrist ext. 4/[address] vs 5/[address] 4+/5 R wrist UD vs 5 /5 L wrist UD. 5/5 R forearm supination vs 5/5 L forearm supination. 5/5 R forearm pronation vs 5/5 L forearm pronation. 4+/5 R elbow ext vs 5/5 L elbow ext. 5/5 R elbow flex vs 5/5 L elbow flex. Outpatient OT recommended to establish HEP, address stiffness and reduced strength , and provide education re: joint protection/ergonomics. Plan Length of treatment (weeks) 6 Plan of Care Start Date 02/07/24 Plan of Care End Date 03/20/24 Comment 1-2 times per week Therapeutic Contents Active Range of Motion, Adaptive Equipment Education, Functional Activities,Home Exercise Program,Joint Protection,Manual Therapy, Education,Neurodevelopment Treatment,Neuromuscular Re- Education,Self-Care,Stretching /Flexibility Activities, Therapeutic Activities, Therapeutic Exercises, Modalities Modalities As Needed,As Prescribed Additional Types of Modalities Heat/Ice/Contrast Baths/ Paraffin Bath/Ultrasound/ Kinesiotape Functional Wrist/Hand Scan Hand Side Sensory Assessment Sensory Profile2 OT Outpatient Treatment Note - Adult Start: 02/07/24 13:30 Freq: Status: Active Protocol: Document 04/21/24 10:46 AMS (Rec: 04/21/24 10:48 AMS [id number]) OT Outpatient Adult Treatment Note Visit Information Visit Number 05/24 (8 visits @ 3 units per visit) Plan of Care Dates 03/20/24 - 04/17/24 Insurance Information [employer]; Zach Corona MD and Chris Baca MD Setting Treatment Setting Outpatient Care Visit Type Note Type Discharge Summary General Information General Information Susie is 33 y.o.; she is R hand dominant; she was referred to OT secondary to R hand pain, R elbow pain, R hand paresthesia, R elbow medial epicondylitis. Medical history is significant for depression, hysterectomy, appendectomy, gall bladder removal, and tubal ligation. Report of difficulties w/ sleep/insomnia. She is a mother of 4 children; her 6 y. o. still needs hands-on caregiving. 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 Susie reported that symptoms presented approx 1 year ago. Most discomfort of the medial R elbow; pain shoots distally down forearm into the wrist and thumb and 2nd digit of the R hand. She denied having a nerve conduction study; she reported trying a compression glove, compression sleeve, and a counterforce brace w/ reported no relief of symptoms . Hobbies: She has transitioned from hand sewing to sewing machine use w/ quilting. She has a history of crocheting. - Subjective Observations Susie has not been seen in the outpatient setting by OT since 03/20/2024; she has no additional appointments scheduled and her outpatient OT POC on 04/17/2024. Thus, recommend d/c from outpatient OT at this time and therapist to re-evaluate as deemed appropriate with receipt of new referral for OT from PCP. - Objective Objective Measurements Please refer to below for progress towards meeting established OT goals: Boring Machine Operator Double End Goals ALL GOALS D/C 04/21/24 1. Susie will be modified independent with execution of home exercise program referencing visual/written instructions if needed. 2. Susie will verbalize understanding of joint protection principles; she will deny any questions re: basic joint protection principles. 3. Susie will present with improved ability to participate in meaningful activities; this will be evidenced by the followina. Susie will obtain a QuickDASH UE Outcome Measure Score of < 40.00. 3b. Susie will obtain a QuickDASH UE Work Module Score of < 50.00. 4. Susie will present w/ improved R UE strength which will support active incorporation of the R UE in daily life: 4a. 5/5 R wrist flex. 4b. 5/5 R wrist ext. 4c. 5/[address] 4d[address] 5/5 R wrist UD. 4e. 5/5 R elbow extension. - - Assessment Assessment of Improvement Susie has not been seen in the outpatient setting by OT since 03/20/2024; she has no additional appointments scheduled and her outpatient OT POC on 04/17/2024. Thus, recommend d/c from outpatient OT at this time and therapist to re-evaluate as deemed appropriate with receipt of new referral for OT from PCP. - Plan Therapy Recommendations Discharge from Occupational Therapy
== END 2024-04-24 12:21 | disposition home or self-care (01) ==
LOC: OT 13:00
PROVIDERS: Family Provider Family Medicine; PCP Family Medicine; Referring Provider Orthopaedic Surgery; Visit Provider Orthopaedic Surgery
DX: M25.521 Pain in right elbow (principal); M79.641 Pain in right hand; R20.2 Paresthesia of skin; M79.642 Pain in left hand; M77.01 Medial epicondylitis, right elbow
CPT/HCPCS: 97110; 97165

== ENCOUNTER → 2024-12-26 15:08 | Outpatient (CLI) | payer OTHER, SELFPAY ==
[2024-12-26 15:43] LABS: Hematocrit 39.5 % (36-46); Hemoglobin 13.3 g/dL (12.0-16.0); Mean Corpuscular HGB Conc 33.6 % (30-36); Mean Corpuscular Hemoglobin 27.8 PG (26-34); Mean Corpuscular Volume 82.6 fL (80-100); Platelet Count 230 X10^3/uL (150-400)
[2024-12-26 16:07] LABS: Alanine Aminotransferase 13 IU/L (<35); Albumin 4.7 g/dL (3.5-5.0); Albumin Globulin Ratio 1.7 (1.0-2.8); Alkaline Phosphatase 55 U/L (38-126); Blood Urea Nitrogen 16 mg/dL (7-17); Calcium 9.3 mg/dL (8.4-10.2); Carbon Dioxide 25 mmol/L (22-32); Chloride 103 mmol/L (98-107); Cholesterol 151 mg/dL (140-199); Estimated Glomerular Filt Rate > 60 mL/min (>60); Globulin 2.8 g/dL (1.7-4.1); Glucose 67 mg/dL (70-99); HDL Cholesterol 65 mg/dL (40-60); HEMOLYSIS < 15 (0-50); Potassium 3.6 mmol/L (3.4-5.1); Sodium 139 mmol/L (137-145); Total Protein 7.5 g/dL (6.3-8.2); Triglycerides 51 mg/dL (35-150)
== END ==
PROVIDERS: Family Provider Family Medicine; PCP Family Medicine; Referring Provider Family Medicine; Visit Provider Family Medicine
DX: M79.10 Myalgia, unspecified site (principal); M25.50 Pain in unspecified joint; Z13.220 Encounter for screening for lipoid disorders
CPT/HCPCS: 36415; 80053; 80061; 85027; 85651; 86200; 86430